=== PATIENT | male | born 1945 | race Caucasian/White ===

== ENCOUNTER 2017-08-06 05:27 | Day surgery (SDC) | payer OTHER, MEDICARE ==
[~2017-08-06] VITALS: Ht 177.8 cm; Wt 82.5 kg
[~2017-08-06 05:27] MED LIST: MULTIVITAMIN1 EAC2 PO
[2017-08-06 06:27] VITALS: BP 181/91
[2017-08-06 09:25] VITALS: BP 139/78
[2017-08-06 10:36] VITALS: BP 144/81
== END 2017-08-06 10:50 | disposition home or self-care (01) ==
LOC: SDC 05:27
DX: T85.22XA Displacement of intraocular lens, initial encounter (principal); Y77.3 Surgical instruments, materials and ophthalmic devices (including sutures) associated with adverse incidents; Z98.41 Cataract extraction status, right eye; Z96.1 Presence of intraocular lens; F17.200 Nicotine dependence, unspecified, uncomplicated
CPT/HCPCS: J0330; J0360; J0690; J3300